=== PATIENT | female | born 1960 | race Caucasian/White ===

== ENCOUNTER 2016-10-12 19:07 | Emergency (ER) | payer BC ==
--- NOTE | ~2016-10-12 | CR229 ---
[facility] A Service of [facility] RADIOLOGY TEXT RESULTS PATIENT: LASHAY SIMS LOCATION: SED : 58 UNIT #: [id number] AGE: [address]: AUDIE SONG SEX: F ORDER DR: [id number] [place] [id number] E MR#: [id number] Acc #: [id number] NAME: LASHAY BLANKENSHIP : 1960 SEX: F STUDY DATE/TIME: 10/12/2016 18:24 UNIT: SED ROOM: STUDY DESCRIPTION: CR Shoulder Min 2 View Lt Attending Physician: Audie Song Aprn Ordering Physician: Jennifer Not Listed MEDICAL IMAGING REPORT This report is preliminary unless electronic signature is present. NOTE This report was dictated as LASHAY TURCIOS. EXAM Left shoulder series. HISTORY Left shoulder pain after a fall today. PROCEDURE 2 views of the left shoulder. COMPARISON STUDIES None FINDINGS There is a fracture of the left humeral neck that is not significantly displaced. No evidence for dislocation. IMPRESSION Nondisplaced left humeral neck fracture. Dictated by... Carlos Rae M.D. THIS IS AN ELECTRONICALLY VERIFIED REPORT Carlos Rae M.D. at 10/15/2016 7:01 AM UMM/amanda TD: 10/13/2016 09:27 JOB #: [id number] [facility] A Service [facility] RADIOLOGY TEXT RESULTS PATIENT: LASHAY SIMS LOCATION: SED : 58 UNIT #: [id number] AGE: [address]: AUDIE SONG SEX: F ORDER DR: MEDICAL IMAGING REPORT
--- NOTE | ~2016-10-12 | CR156 ---
[facility] A Service of [facility] RADIOLOGY TEXT RESULTS PATIENT: LASHAY SIMS LOCATION: SED : 58 UNIT #: [id number] AGE: [address]: AUDIE SONG SEX: F ORDER DR: [id number] [place] [id number] E MR#: [id number] Acc #: [id number] NAME: LASHAY BLANKENSHIP : 1960 SEX: F STUDY DATE/TIME: 10/12/2016 18:24 UNIT: SED ROOM: STUDY DESCRIPTION: CR Humerus Min 2 View Lt Attending Physician: Audie Song Aprn Ordering Physician: Physician Non-Staff MEDICAL IMAGING REPORT This report is preliminary unless electronic signature is present. EXAM Left humerus series INDICATIONS Left shoulder and arm pain after a fall today. PROCEDURE 2 views of the left humerus COMPARISON None. FINDINGS Mildly comminuted fracture of the humeral neck. No evidence for dislocation or significant displacement on this study. IMPRESSION Mildly comminuted but apparently not significantly displaced fracture of the humeral neck. Dictated by... Carlos Rae M.D. THIS IS AN ELECTRONICALLY VERIFIED REPORT Carlos Rae M.D. at 10/15/2016 7:01 AM Armen TD: 10/13/2016 09:11 JOB #: [id number] MEDICAL IMAGING REPORT
[~2016-10-12 19:07] MED LIST: ACTOS30 MG PO; AMARYL; AMARYL PO; AMARYL2 MG PO; AMLODIPINE BESYL5 MG PO; AMLODIPINE-OLM1 EAC1; AZOR 10-20 MG1 UDTAB; AZOR 5-40 MG1 UDTAB PO; CELLCEPT500 MG PO; CHANTIX PO; COZAAR; DICLOFENAC; DICLOFENAC PO; FLEXERIL10 MG; FLEXERIL10 MG PO; GLUCOPHAGE500 MG; GLUCOPHAGE500 MG PO; HYDROCODONE-APA1 T41 PO; IBUPROFEN PO; IBUPROFEN800 MG PO; KOMBIGLYZE XR1 EAC1 PO; KOMBIGLYZE XR1 EAC2 PO; LOSARTAN POTAS100 MG PO; METFORMIN PO; PERCOCET 5-3251 TAB PO; PRAVACHOL; PRAVACHOL PO; PRAVASTATIN SOD20 MG PO; PRAVASTATIN SOD40 MG PO; PREDNISONE PO; PROCARDIA XL PO; VIT B12 PO
== END 2016-10-12 20:07 | disposition home or self-care (01) ==
LOC: SED 19:07
DX: S42.402A Unspecified fracture of lower end of left humerus, initial encounter for closed fracture (principal); E11.9 Type 2 diabetes mellitus without complications; I10 Essential (primary) hypertension; Z87.891 Personal history of nicotine dependence; W19.XXXA Unspecified fall, initial encounter; Y92.9 Unspecified place or not applicable
CPT/HCPCS: 29240; 73030; 73060; 96374; 99284; J2270

== ENCOUNTER 2017-02-24 09:23 | Emergency (ER) | payer BC ==
[~2017-02-24] VITALS: Ht 157.5 cm; Wt 78.5 kg
--- NOTE | ~2017-02-24 | CR282 ---
[facility] A Service of [facility] RADIOLOGY TEXT RESULTS PATIENT: LASHAY SIMS [facility]ATION: [facility] : 58 UNIT #: [id number] AGE: [address]: Angelina Finn APRN SEX: F ORDER DR: [id number] [facility] [address] [place], [place] [address] [id number] E MR#: [id number] Acc #: [id number] NAME: LASHAY SIMS : 1960 SEX: F STUDY DATE/TIME: UNIT: CFTX ROOM: STUDY DESCRIPTION: CR Wrist Min 3 View Rt Attending Physician: Angelina Finn A.P.R.N. Ordering Physician: Ed Saji Patterson M.D. Primary Care Physician: Contreras Escobedo M.D. MEDICAL IMAGING REPORT This report is preliminary unless electronic signature is present EXAM Right wrist 02/24/2017 1051 hours HISTORY 56-year-old woman with 2-day history of wrist pain. No known injury. COMPARISON None FINDINGS AP, lateral and oblique views demonstrate normal bone density. There is joint space loss at the radiocarpal joint with mild spurring suggesting osteoarthritis. There is mild spurring at the first carpometacarpal joint consistent with osteoarthritis. There is no fracture, dislocation or erosive change. IMPRESSION 1. No fracture or dislocation. 2. Joint space loss and mild spurring at the radiocarpal joint and the first carpometacarpal joint suggesting osteoarthritis. No erosive change seen. Dictated by... Renée Nathan M.D. THIS IS AN ELECTRONICALLY VERIFIED REPORT Renée Nathan M.D. at 02/24/2017 6:53 PM SMM/to TD: 02/24/2017 17:01 JOB #: [id number] MEDICAL IMAGING REPORT [facility] A Service of [facility] RADIOLOGY TEXT RESULTS PATIENT: LASHAY SIMS LOCATION: [facility] : 58 UNIT #: [id number] AGE: [address]: Angelina Finn APRN SEX: F ORDER DR: Page 1 of 1 COPY
== END 2017-02-24 11:38 | disposition home or self-care (01) ==
LOC: CED 09:23 → CFTX 09:23
DX: M77.9 Enthesopathy, unspecified (principal); F17.210 Nicotine dependence, cigarettes, uncomplicated; I10 Essential (primary) hypertension; E11.9 Type 2 diabetes mellitus without complications
CPT/HCPCS: 29125; 73110; 96372; 99283; J1885